=== PATIENT | male | born 1975 | race Native Hawaiian/Other Pacific Islander ===

== ENCOUNTER 2017-01-25 15:53 | Emergency (ER) | payer OTHER ==
[~2017-01-25] VITALS: Ht 165.1 cm; Wt 77.1 kg
[2017-01-25 16:40] LABS: PLATELET COUNT 328 K/uL (142-355)
[2017-01-25 16:49] LABS: POTASSIUM 3.8 mmol/L (3.6-5.2); SODIUM 132 mmol/L (136-145)
[2017-01-25 18:36] VITALS: BP 143/91; TEMP 98.1
== END 2017-01-25 18:39 | disposition home or self-care (01) ==
LOC: ED 15:53
DX: N20.1 Calculus of ureter (principal)
CPT/HCPCS: 36415; 80053; 80307; 81000; 85027; 96375; 96376; 99284; G0479; J1885; J2270

== ENCOUNTER 2017-11-14 15:26 | Emergency (ER) | payer OTHER ==
[~2017-11-14] VITALS: Ht 165.1 cm; Wt 77.1 kg
[2017-11-14 16:07] VITALS: BP 160/116; TEMP 97.9
== END 2017-11-14 17:28 | disposition home or self-care (01) ==
LOC: ED 15:26
DX: R05 Cough (principal)
CPT/HCPCS: 99281

== ENCOUNTER 2019-09-30 13:02 | Emergency (ER) | payer OTHER ==
[~2019-09-30] VITALS: Ht 152.4 cm; Wt 79.4 kg
[2019-09-30 13:05] VITALS: TEMP 98
[2019-09-30] MEDS ORDERED: HYDR25TA60 PO (13:17)
[2019-09-30 13:37] LABS: PLATELET COUNT 236 K/uL (142-355)
[2019-09-30 13:42] LABS: POTASSIUM 3.9 mmol/L (3.6-5.2)
[2019-09-30 14:13] VITALS: BP 132/97
== END 2019-09-30 14:17 | disposition home or self-care (01) ==
LOC: ED 13:02
PROVIDERS: Hospitalist
DX: R51 Headache (principal); I10 Essential (primary) hypertension
CPT/HCPCS: 80048; 85027; 96372; 99283; J0696; J1885

== ENCOUNTER 2019-12-23 07:19 | Emergency (ER) | payer OTHER ==
[~2019-12-23] VITALS: Ht 165.1 cm; Wt 79.4 kg
[~2019-12-23 07:19] MED LIST: HYDR25TA60 PO
[2019-12-23 07:58] LABS: PLATELET COUNT 292 K/uL (142-355)
[2019-12-23 08:05] LABS: POTASSIUM 4.2 mmol/L (3.6-5.2)
[2019-12-23 09:48] VITALS: BP 138/81; TEMP 98.1
== END 2019-12-23 09:49 | disposition home or self-care (01) ==
LOC: ED 07:19
PROVIDERS: Emergency Medicine
DX: R10.11 Right upper quadrant pain (principal)
CPT/HCPCS: 36415; 80053; 81000; 82150; 83690; 85027; 96374; 99284; J1885

== ENCOUNTER 2021-12-23 10:15 | Emergency (ER) | payer BC | END 2021-12-23 10:24 | disposition home or self-care (01) | LOC: ED 10:15 | DX: Z53.21 Procedure and treatment not carried out due to patient leaving prior to being seen by health care provider (principal) | CPT/HCPCS: 99281 ==

== ENCOUNTER 2022-01-02 11:38 | Outpatient (CLI) | payer BC | END 2022-01-02 19:27 | disposition home or self-care (01) | LOC: RAD 11:38 | PROVIDERS: ATTEND Nurse Practitioner Family | DX: M54.2 Cervicalgia (principal) ==

== ENCOUNTER 2022-01-07 12:43 | Emergency (ER) | payer BC ==
[~2022-01-07] VITALS: Ht 165.1 cm; Wt 79.4 kg
[2022-01-07 12:51] VITALS: TEMP 97.8
[2022-01-07 13:26] LABS: PLATELET COUNT 235 K/uL (142-355)
[2022-01-07 13:31] LABS: POTASSIUM 3.3 mmol/L (3.6-5.2)
[2022-01-07 15:48] VITALS: BP 150/84
== END 2022-01-07 16:00 | disposition home or self-care (01) ==
LOC: ED 12:43
PROVIDERS: Emergency Medicine Emergency Medical Services
DX: N20.1 Calculus of ureter (principal); N39.0 Urinary tract infection, site not specified; Z87.442 Personal history of urinary calculi
CPT/HCPCS: 36415; 80048; 81000; 85027; 87088; 96360; 96375; 99284; J1885

== ENCOUNTER 2022-12-18 16:46 | Emergency (ER) | payer OTHER ==
[~2022-12-18] VITALS: Ht 165.1 cm; Wt 79.4 kg
[2022-12-18 16:54] VITALS: BP 160/108; TEMP 98.5
== END 2022-12-18 18:02 | disposition home or self-care (01) ==
LOC: ED 16:46
DX: M54.59 Other low back pain (principal); W18.39XA Other fall on same level, initial encounter; Y92.89 Other specified places as the place of occurrence of the external cause
CPT/HCPCS: 96372; 99283; J1885

== ENCOUNTER 2023-02-27 14:32 | Emergency (ER) | payer OTHER ==
[~2023-02-27] VITALS: Ht 165.1 cm; Wt 77.1 kg
[2023-02-27 14:32] VITALS: TEMP 98.4
[2023-02-27 15:04] LABS: PLATELET COUNT 46 K/uL (142-355)
[2023-02-27 15:13] LABS: POTASSIUM 3.5 mmol/L (3.6-5.2)
[2023-02-27 15:17] LABS: PARTIAL THROMBOPLASTIN TIME 22.7 SECONDS (23.9-36.7)
[2023-02-27 19:28] VITALS: BP 105/75
[2023-03-10] MEDS ORDERED: COZAAR25 MG PO (09:14)
== END 2023-02-27 19:30 | disposition home or self-care (01) ==
LOC: ED 14:32
PROVIDERS: Emergency Medicine
DX: S42.302A Unspecified fracture of shaft of humerus, left arm, initial encounter for closed fracture (principal); V00-Y99 External causes of morbidity; K76.0 Fatty (change of) liver, not elsewhere classified; F17.210 Nicotine dependence, cigarettes, uncomplicated
CPT/HCPCS: 80053; 80320; 85027; 85610; 85730; 90471; 90715; 93005; 96361; 96374; 96375; 99284; 99285; J2270; J2405; Q9963

== ENCOUNTER 2023-04-17 13:29 | Outpatient (CLI) | payer OTHER ==
[~2023-04-17 13:29] MED LIST changes: +COZAAR25 MG PO
== END 2023-04-17 19:46 | disposition home or self-care (01) ==
LOC: CT 13:29
PROVIDERS: ATTEND Registered Nurse
DX: R10.32 Left lower quadrant pain (principal)
CPT/HCPCS: 36415; 82565; 84520; Q9963

== ENCOUNTER 2023-05-20 13:58 | Outpatient (CLI) | payer OTHER | END 2023-05-20 19:16 | disposition home or self-care (01) | LOC: RAD 13:58 | PROVIDERS: ATTEND Nurse Practitioner Family | DX: M25.511 Pain in right shoulder (principal) ==